=== PATIENT | male | born 1960 | race African-American/Black ===

== ENCOUNTER 2017-05-11 11:08 | Outpatient (CLI) | payer OTHER | END 2017-05-11 11:09 | disposition home or self-care (01) | LOC: BICRAD 11:08 | PROVIDERS: ATTEND Podiatrist | DX: R20.0 Anesthesia of skin; M79.672 Pain in left foot; Z98.890 Other specified postprocedural states ==

== ENCOUNTER 2020-01-23 13:52 | Outpatient (CLI) | payer OTHER ==
--- NOTE | 2020-01-23 15:38 | RAD ---
Exam:2 views left foot HISTORY: Arthritis COMPARISON: None FINDINGS: Prosthesis involving the first metatarsal phalangeal joint space. No perihardware lucency. Moderate degenerative changes of the first interphalangeal joint space. Maintenance of the Lisfranc alignment. No fracture. 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
--- NOTE | 2020-01-23 15:52 | RAD ---
Exam:Right foot 2 views HISTORY: Arthritis COMPARISON: None FINDINGS: Lisfranc alignment appears be maintained. There spaces are preserved. No fracture. IMPRESSION: No fracture.
== END 2020-01-23 13:53 | disposition home or self-care (01) ==
LOC: ULT 13:52
PROVIDERS: ATTEND Orthopaedic Surgery
DX: M19.072 Primary osteoarthritis, left ankle and foot (principal); M19.071 Primary osteoarthritis, right ankle and foot; R60.9 Edema, unspecified
CPT/HCPCS: 93922